=== PATIENT | female | born 1990 | race Caucasian/White ===

== ENCOUNTER → 2019-12-14 13:35 | Outpatient (BNVA) | payer BC, SELFPAY | PROVIDERS: Family Provider Family Medicine; Referring Provider Chiropractor; Visit Provider Podiatrist Foot & Ankle Surgery | DX: M79.671 Pain in right foot (principal); M79.672 Pain in left foot | CPT/HCPCS: 73630 ==

== ENCOUNTER 2020-07-19 21:56 | Emergency (ER) | payer BC, SELFPAY ==
[2020-07-19 22:24] VITALS: BP 117/79; PULSE 90; RESP 16; TEMP 36.3; O2SAT 97; BMI 35.5
--- NOTE | 2020-07-19 22:34 | ED_ITS ---
HPI - Animal Bite General: Chief Complaint: Animal Bite Stated Complaint: POSSIBLE SNAKE BITE Time Seen by Provider: 07/19/20 22:13 Source: patient Mode of arrival: ambulatory Limitations: no limitations History of Present Illness: HPI narrative: 29-year-old female states she is at her cam[place] at [address] she had felt a sting on her foot. She did see a snake that did also crawl away and she is unsure actually what it bit her. She has a very small puncture wound to her right foot. She denies any pain she has no swelling denies any worsening proving factors. States her last tetanus was roughly 7 years ago. Associated symptoms: Deny chills, fever(s) or headache(s) Review of Systems Const: Denies: fever(s), chills, body aches or change in appetite Eyes: Denies: blurry vision or eye discomfort ENMT: Denies: throat pain or dental pain Card: Denies: chest pain Resp: Denies: dyspnea GI: Denies: abdominal pain, nausea, vomiting or diarrhea : Denies: dysuria Musc: Denies: neck pain or back pain Skin/Breast: Denies: rash Neuro: Denies: headache(s) Psych: Denies: depression Sunny/Lymph: Denies: easy bruising All/Imm: Denies: urticaria PFSH ED PFSH: Medical History Depression GERD (gastroesophageal reflux disease) Seasonal allergies Surgical History History of eye surgery (~2015) History of hand surgery (~2015) History of oral surgery (~2013) History of ovarian cystectomy Family History Other Cancer Hypertension Lung disease Psychiatric illness Stroke Denies family history of Diabetes CAD (coronary artery disease) Clotting disorder Dementia Hyperlipidemia Chronic kidney disease (CKD) Suicide Anesthesia complication Bleeding disorder Family history of premature coronary artery disease Social History Smoking and tobacco status: never smoked Alcohol intake: never Adopted: No Caregiver/support person: Yes Lives independently: Yes Household members: friend(s) Housing: House Marital status: Current occupational status: employed and student Current occupation: Education Cooridinator at [employer] Female Reproductive History: Date of last menstrual period: 05/19/20 Physical Exam Const: COMMON NORMALS: no acute distress, patient oriented x3 and healthy appearing HENMT: COMMON NORMALS: normocephalic and atraumatic HEAD & SCALP: normocephalic and atraumatic Eye: COMMON NORMALS: Equal, round and reactive pupils present and EOMs intact bilaterally PUPIL: Yes Equal, round and reactive pupils present Neck/C-Spine: COMMON NORMALS: full ROM and supple Chest: COMMONS NORMALS: normal inspection of the chest and normal palpation of entire chest wall Resp: COMMON NORMALS: normal respiratory effort, No retractions, No use of accessory muscles and clear to auscultation bilaterally AUSCULTATION: clear to auscultation bilaterally Cardio: COMMON NORMALS: regular rate, regular rhythm and No murmurs present (Cardio) RATE: regular rate RHYTHM: regular rhythm GI: COMMON NORMALS: Normal to inspection, nondistended, normoactive bowel sounds present, Soft to palpation, non-tender and no masses PALPATION: Yes Soft to palpation Extremity: COMMON NORMALS: full ROM NARRATIVE EXTREMITY EXAM: Small puncture wound over right foot with no erythema or tenderness or swelling Neuro: COMMON NORMALS: patient oriented x3, moves all extremities and no focal motor deficits Psych: COMMON NORMALS: mental status grossly normal, Normal thought process present and cooperative THOUGHT PROCESS: Normal thought process present Skin: COMMON NORMALS: no rashes or lesions noted and no wounds GENERAL SKIN EXAM: no rashes or lesions noted Course Vital Signs: Vital signs: Vital Signs Temperature 97.3 F L 07/19/20 22:24 Pulse Rate 90 07/19/20 22:24 Respiratory Rate 16 07/19/20 22:24 Blood Pressure 117/79 07/19/20 22:24 Pulse Oximetry 97 07/19/20 22:24 MDM - Animal Bite MDM Narrative: Medical decision making narrative: Patient presents here with a bite to her foot. Started tell exactly what is she does have 1 small puncture wound. She has no erythema or swelling with no signs of a poisonous snake bite. Patient given a tetanus and is stable for discharge. Discharge Plan Discharge Patient Disposition: Home Clinical Impression: Bite by animal Condition: Stable Prescriptions: No Action omeprazole 40 mg capsule,delayed release(DR/EC) 40 mg PO BID RF: 0 Zyrtec 10 mg capsule 10 mg PO DAILY RF: 0 sertraline [Zoloft] 100 mg tablet 150 mg PO DAILY RF: 0 norgestimate-ethinyl estradiol [Ortho Tri-Cyclen (28)] 0.18/0.215/0.25 mg-35 mcg (28) tablet 1 tab PO DAILY RF: 0 zolpidem [Ambien] 10 mg tablet 10 mg PO DAILY RF: 0 meloxicam 15 mg tablet 15 mg PO DAILY 14 Days Qty: 14 RF: 1 prednisone 10 mg tablet 10 mg PO DIRECTED Qty: 42 RF: 0 Discharge Orders: Discharge ED (Routine); Ordered 07/19/20 Ordered By: Umberto Pruitt Referrals: Travis Babin MD [Family Provider] - 1-3 days Discharge Diet: Advance as tolerated Discharge Activity: Resume usual activity Patient Instructions: Animal Bite (ED) Coding Level of Care Code ED [employer] for Jacob Coelho
[2020-07-19 22:35] VITALS: BP 137/84; PULSE 92; RESP 16; TEMP 37; O2SAT 97
[2020-07-19] MEDS: tetanus-dipt-pertussis 0.5 mL SDV IM (22:45)
== END 2020-07-19 22:54 | disposition home or self-care (01) ==
LOC: ER 22:55
PROVIDERS: Emergency Provider Emergency Medicine
DX: S91.351A Open bite, right foot, initial encounter (principal); W64.XXXA Exposure to other animate mechanical forces, initial encounter; Z23 Encounter for immunization
CPT/HCPCS: 90471; 90715; 99282

== ENCOUNTER → 2020-11-16 08:24 | Outpatient (BNVA) | payer OTHER, SELFPAY | PROVIDERS: PCP Family Medicine; Visit Provider Family Medicine | DX: Z13.6 Encounter for screening for cardiovascular disorders (principal); R23.2 Flushing | CPT/HCPCS: 80053; 80061; 84443; 85025 ==

== ENCOUNTER → 2022-07-08 15:11 | Outpatient (BNVA) | payer OTHER, SELFPAY | PROVIDERS: PCP Family Medicine; Visit Provider Family Medicine | DX: Z01.419 Encounter for gynecological examination (general) (routine) without abnormal findings (principal) | CPT/HCPCS: 87624 ==